=== PATIENT | female | born 1955 | race Caucasian/White ===

== ENCOUNTER 2021-10-25 12:03 | Outpatient (CLI) | payer MEDICARE, OTHER | END 2021-10-25 12:04 | disposition home or self-care (01) | LOC: BICRAD 12:03 | PROVIDERS: ATTEND Nurse Practitioner Family | DX: E11.65 Type 2 diabetes mellitus with hyperglycemia (principal); M79.89 Other specified soft tissue disorders | CPT/HCPCS: 71046 ==

== ENCOUNTER 2021-10-30 08:56 | Outpatient (CLI) | payer MEDICARE | END 2021-10-30 08:57 | disposition home or self-care (01) | LOC: BICMAMMO 08:56 | PROVIDERS: ATTEND Nurse Practitioner Family | DX: Z12.31 Encounter for screening mammogram for malignant neoplasm of breast (principal) | CPT/HCPCS: 77063; 77067 ==

== ENCOUNTER 2021-10-30 15:08 | Emergency (ER) | payer MEDICARE ==
[2021-10-30 16:12] LABS: #Eosinphils 0.2 thou/uL (0.0-0.7); #Monocytes 0.4 thou/uL (0.11-0.59); #Neutrophils 2.9 thou/uL (1.40-6.50); %Basophils 0.4 % (0.0-1.0); %Lymphocytes 36.4 % (21.0-51.0); %Monocytes 6.5 % (0.0-10.0); %Neutrophils 53.7 % (42.0-75.0); Hemoglobin 10.5 g/dL (12.0-16.0); Mean Corpuscular HGB CONC 33.9 g/dL (32.0-36.0); Mean Corpuscular Hemoglobin 33.2 pg (27.0-31.0); Mean Corpuscular Volume 97.9 fL (78.0-98.0); Mean Platelet Volume 6.9 fL (7.4-10.4); Platelet Count 349 thou/uL (130-400); RBC Distribution Width 10.8 % (11.5-14.5); Red Blood Cell (RBC) Count 3.16 mill/uL (4.20-5.40); White Blood Cell (WBC) Count 5.4 thou/uL (4.8-10.8)
[2021-10-30 16:20] LABS: PTT 30.7 sec (22.9-36.1); Prothrombin Time 12.8 sec (12.0-14.7)
[2021-10-30 16:32] LABS: Anion Gap 15 mmol/L (10-20); BUN (Urea Nitrogen) 29 mg/dL (9.8-20.1); Calc. Creatinine Clearance 0 mL/min (70-130); Carbon Dioxide 25 mmol/L (23-31); Chloride 101 mmol/L (98-107); Potassium 4.9 mmol/L (3.5-5.1); Sodium 136 mmol/L (136-145)
[2021-10-30 16:33] LABS: ALT (SGPT) 12 U/L (8-55); AST (SGOT) 13 U/L (5-34); Albumin 3.9 g/dL (3.4-4.8); Alkaline Phosphatase 82 U/L (40-110); Bilirubin, Total 0.2 mg/dL (0.2-1.2); Calcium 9.5 mg/dL (7.8-10.44); Estimated GFR 46; Globulin 3.4 g/dL (2.4-3.5); Glucose 277 mg/dL (80-115); Protein, Total 7.3 g/dL (5.8-8.1)
== END 2021-10-30 19:23 | disposition home or self-care (01) ==
LOC: ERS 15:08
DX: D64.9 Anemia, unspecified (principal); K92.2 Gastrointestinal hemorrhage, unspecified; E11.9 Type 2 diabetes mellitus without complications; E78.5 Hyperlipidemia, unspecified; Z79.4 Long term (current) use of insulin; Z79.899 Other long term (current) drug therapy; Z12.11 Encounter for screening for malignant neoplasm of colon; E11.3593 Type 2 diabetes mellitus with proliferative diabetic retinopathy without macular edema, bilateral; E11.65 Type 2 diabetes mellitus with hyperglycemia; M79.89 Other specified soft tissue disorders; I83.893 Varicose veins of bilateral lower extremities with other complications; Z68.28 Body mass index [BMI] 28.0-28.9, adult
CPT/HCPCS: 36415; 80053; 82274; 85025; 85610; 85730; 86850; 86900; 86901

== ENCOUNTER 2021-12-10 13:21 | Outpatient (CLI) | payer MEDICARE | END 2021-12-10 13:22 | disposition home or self-care (01) | LOC: BICULT 13:21 | PROVIDERS: ATTEND Nurse Practitioner Family | DX: I83.893 Varicose veins of bilateral lower extremities with other complications (principal); E78.5 Hyperlipidemia, unspecified; E11.65 Type 2 diabetes mellitus with hyperglycemia; M79.89 Other specified soft tissue disorders | CPT/HCPCS: 93923 ==

== ENCOUNTER 2022-01-01 08:44 | Outpatient (CLI) | payer MEDICARE, OTHER ==
[2022-01-01] MEDS ORDERED: Iopamidol 370 76% 100 ML VIAL ONE (13:57)
== END 2022-01-01 08:45 | disposition home or self-care (01) ==
LOC: CT 08:44
PROVIDERS: ATTEND Thoracic Surgery (Cardiothoracic Vascular Surgery)
DX: I77.1 Stricture of artery (principal); I73.9 Peripheral vascular disease, unspecified; M79.89 Other specified soft tissue disorders
CPT/HCPCS: 75635; 82565; Q9967

== ENCOUNTER 2024-05-10 10:08 | Outpatient (CLI) | payer MEDICARE | END 2024-05-10 10:09 | disposition home or self-care (01) | LOC: BICMAMMO 10:08 | PROVIDERS: ATTEND Nurse Practitioner Family | DX: Z12.31 Encounter for screening mammogram for malignant neoplasm of breast (principal); Z80.3 Family history of malignant neoplasm of breast | CPT/HCPCS: 77063; 77067 ==